=== PATIENT | male | born 1955 | race Caucasian/White ===

== ENCOUNTER 2018-01-07 17:00 | Outpatient (REF) | payer OTHER, BC, SELFPAY ==
[2018-01-07 21:34] LABS: Abs Immature Grans 0.01 k/cumm (0.0-0.09); Absolute Basophil Count 0.03 k/cumm (0.0-0.2); Absolute Eosinophil Count 0.24 k/cumm (0.0-0.7); Absolute Lymphocyte Count 1.39 k/cumm (1.2-3.4); Absolute Monocyte Count 0.58 k/cumm (0.11-0.7); Absolute Neutrophil Count 4.95 k/cumm (1.2-6.7); Basophils % 0.4; Eosinophils % 3.3; HCT 39.4 % (40.0-50.0); HGB 13.4 g/dL (13.5-17.5); Immature Grans % 0.1; Lymphocytes % 19.3; Mean Corpuscular Hemoglobin 31.6 pg (27.0-33.0); Mean Corpuscular Volume 92.9 fL (80-95); Mean Platelet Volume 12.1 fL (8.0-11.0); Monocytes % 8.1; Neutrophils % 68.8; Platelet Count 174 x1000/uL (130-400); RBC 4.24 m/cumm (4.50-6.00); RBC Distribution Width 13.5 % (11.8-14.1)
== END 2018-01-07 17:20 ==
LOC: NCHCN 17:00
PROVIDERS: PCP Physician Assistant Medical; Visit Provider Nurse Practitioner Family
DX: R91.8 Other nonspecific abnormal finding of lung field (principal); D64.9 Anemia, unspecified; I10 Essential (primary) hypertension; E11.9 Type 2 diabetes mellitus without complications
CPT/HCPCS: 85025

== ENCOUNTER 2018-01-14 00:52 | Outpatient (CLI) | payer OTHER, BC, SELFPAY ==
--- NOTE | 2018-01-14 14:29 | DI.CT_ITS ---
SYMPTOM/DIAGNOSIS: LUNG NODULE R91.8 CT CHEST: CT scan of the chest was performed without intravenous contrast material. Comparison examination is 07/27/17. Lack of IV contrast does limit evaluation on this examination. The thoracic aorta shows mild atherosclerosis. it is normal in caliber. Heart size is within normal limits. No significant pericardial effusion seen. No significant mediastinal adenopathy is seen on this noncontrast examination. No pleural effusion or pneumothorax is identified. There is pleural scarring present in the lung apices. The right upper lobe pulmonary nodule is again seen and measures 1 cm x 0.7 cm. This is unchanged compared to the prior examinations. No new pulmonary nodules are appreciated. No pulmonary infiltrates are seen. The tracheobronchial tree is unremarkable. Mild emphysematous changes are seen in the lungs. Upper abdominal images show no acute abnormality. Mild degenerative changes are seen in the spine. IMPRESSION: Stable right upper lobe pulmonary nodule
== END 2018-01-14 01:12 ==
PROVIDERS: PCP Physician Assistant Medical; Visit Provider Nurse Practitioner Family
DX: R91.8 Other nonspecific abnormal finding of lung field (principal)
CPT/HCPCS: 71250

== ENCOUNTER 2018-01-22 10:27 | Outpatient (REF) | payer OTHER, BC, SELFPAY ==
[2018-01-22 19:59] LABS: Folate 18.8 ng/mL (8.6-20.0)
== END 2018-01-22 10:47 ==
LOC: NCHCN 10:27
PROVIDERS: PCP Physician Assistant Medical; Visit Provider Nurse Practitioner Family
DX: D64.9 Anemia, unspecified (principal)
CPT/HCPCS: 82746

== ENCOUNTER 2018-07-04 16:54 | Outpatient (REF) | payer OTHER, BC, SELFPAY ==
[2018-07-04 20:52] LABS: Absolute Basophil Count 0.02 k/cumm (0.0-0.2); Absolute Eosinophil Count 0.26 k/cumm (0.0-0.7); Absolute Lymphocyte Count 1.47 k/cumm (1.2-3.4); Absolute Monocyte Count 0.38 k/cumm (0.11-0.7); Absolute Neutrophil Count 2.92 k/cumm (1.2-6.7); Basophils % 0.4; Eosinophils % 5.1; HCT 37.7 % (40.0-50.0); HGB 12.5 g/dL (13.5-17.5); Lymphocytes % 29.1; Mean Corp. HGB Concentration 33.2 g/dL (32.0-36.0); Mean Corpuscular Hemoglobin 30.7 pg (27.0-33.0); Mean Corpuscular Volume 92.6 fL (80-95); Mean Platelet Volume 12.2 fL (8.0-11.0); Monocytes % 7.5; Neutrophils % 57.9; Platelet Count 159 x1000/uL (130-400); RBC 4.07 m/cumm (4.50-6.00); RBC Distribution Width 14.3 % (11.8-14.1); White Blood Cell Count 5.05 k/cumm (4.4-10.8)
[2018-07-04 21:24] LABS: Anion Gap 11.2 mmol/L (3-11); BUN 24 mg/dL (7-18); CO2 23.8 mmol/L (21.0-32.0); CREATININE 0.83 mg/dL (0.70-1.30); Calcium 8.4 mg/dL (8.5-10.1); Chloride 101 mmol/L (98-107); Ferritin 25 ng/mL (8-388); Glucose 147 mg/dL (70-100); Potassium 4.4 mmol/L (3.5-5.1); Sodium 136 mmol/L (136-145)
== END 2018-07-04 17:14 ==
LOC: NCHCN 16:54
PROVIDERS: PCP Physician Assistant Medical; Visit Provider Nurse Practitioner Family
DX: D64.9 Anemia, unspecified (principal); I10 Essential (primary) hypertension
CPT/HCPCS: 80048; 82728; 85025

== ENCOUNTER 2018-07-15 00:53 | Outpatient (CLI) | payer OTHER, BC, SELFPAY ==
--- NOTE | 2018-07-15 08:23 | DI.CT_ITS ---
SYMPTOM/DIAGNOSIS: F/U LUNG NODULE, R91.[address]: CT examination of the chest was performed without contrast administration. The examination is compared with previous chest CT of 01/14/18 and 06/04/17. A previously described right upper lobe intrapulmonary nodule measuring about 10 by 7 mm. in diameter on transaxial images is again seen and is unchanged in appearance in comparison with the previous examinations. No new intrapulmonary nodule is seen. Tracheobronchial tree appears intact. No pleural effusion. Mild predominantly subpleural emphysematous changes noted in the lung apices. No mediastinal or hilar adenopathy. Images obtained through the upper abdomen show unremarkable appearance of visualized portions of the liver, spleen, pancreas, adrenals and kidneys. CONCLUSION: Stable right upper lobe pulmonary nodule. Follow up chest CT recommended in 12 months.
== END 2018-07-15 01:13 ==
PROVIDERS: PCP Physician Assistant Medical; Visit Provider Nurse Practitioner Family
DX: R91.8 Other nonspecific abnormal finding of lung field (principal)
CPT/HCPCS: 71250

== ENCOUNTER 2018-11-04 17:20 | Outpatient (REF) | payer OTHER, BC, SELFPAY ==
[2018-11-04 20:57] LABS: Abs Immature Grans 0.02 k/cumm (0.0-0.09); Absolute Basophil Count 0.05 k/cumm (0.0-0.2); Absolute Eosinophil Count 0.23 k/cumm (0.0-0.7); Absolute Lymphocyte Count 1.14 k/cumm (1.2-3.4); Absolute Monocyte Count 0.51 k/cumm (0.11-0.7); Absolute Neutrophil Count 4.25 k/cumm (1.2-6.7); Basophils % 0.8; Eosinophils % 3.7; Immature Grans % 0.3; Lymphocytes % 18.4; Mean Corp. HGB Concentration 34.2 g/dL (32.0-36.0); Mean Corpuscular Volume 93.6 fL (80-95); Mean Platelet Volume 11.8 fL (8.0-11.0); Monocytes % 8.2; Neutrophils % 68.6; Platelet Count 204 x1000/uL (130-400); RBC 4.06 m/cumm (4.50-6.00); RBC Distribution Width 13.5 % (11.8-14.1)
[2018-11-04 21:13] LABS: HDL Cholesterol 38 mg/dL (40-60); LDL CHOLESTEROL 91 mg/dL (<100)
== END 2018-11-04 17:40 ==
LOC: NCHCN 17:20
PROVIDERS: PCP Nurse Practitioner Family; Visit Provider Nurse Practitioner Family
DX: E10.9 Type 1 diabetes mellitus without complications (principal); D64.9 Anemia, unspecified
CPT/HCPCS: 83721; 83718; 85025

== ENCOUNTER 2019-06-23 20:22 | Outpatient (REF) | payer OTHER, BC, SELFPAY ==
[2019-06-23 20:35] LABS: HCT 39.5 % (40.0-50.0); HGB 13.5 g/dL (13.5-17.5); Mean Corp. HGB Concentration 34.2 g/dL (32.0-36.0); Mean Corpuscular Volume 93.6 fL (80-95); Mean Platelet Volume 12.4 fL (8.0-11.0); Platelet Count 182 x1000/uL (130-400); RBC 4.22 m/cumm (4.50-6.00); RBC Distribution Width 13.5 % (11.8-14.1); White Blood Cell Count 5.78 k/cumm (4.4-10.8)
[2019-06-23 20:49] LABS: Anion Gap 7.3 mmol/L (3-11); BUN 22 mg/dL (7-18); CO2 29.7 mmol/L (21.0-32.0); CREATININE 0.97 mg/dL (0.70-1.30); Calcium 8.9 mg/dL (8.5-10.1); Chloride 103 mmol/L (98-107); Glucose 70 mg/dL (74-106); HDL Cholesterol 43 mg/dL (40-60); Potassium 4.4 mmol/L (3.5-5.1); Sodium 140 mmol/L (136-145)
[2019-06-23 20:55] LABS: Hemoglobin A1C 7.9 % (3.8-5.6)
[2019-06-24 10:40] LABS: LDL CHOLESTEROL 92 mg/dL (<100)
== END 2019-06-23 20:42 ==
LOC: NCHCN 20:22
PROVIDERS: PCP Nurse Practitioner Family; Visit Provider Nurse Practitioner Family
DX: E10.9 Type 1 diabetes mellitus without complications (principal); I10 Essential (primary) hypertension
CPT/HCPCS: 80048; 83721; 85027; 83036; 83718

== ENCOUNTER 2019-08-25 18:26 | Outpatient (REF) | payer OTHER, BC, SELFPAY ==
[2019-08-31 12:23] LABS: SARS-CoV-2 RNA Undetected (Undetected); SARS-CoV-2 Specimen Source Nasopharynx
== END 2019-08-25 18:46 ==
LOC: NCHCN 18:26
PROVIDERS: PCP Nurse Practitioner Family; Visit Provider Nurse Practitioner Family
DX: Z20.828 Contact with and (suspected) exposure to other viral communicable diseases (principal)
CPT/HCPCS: U0003

== ENCOUNTER 2019-11-17 16:38 | Outpatient (REF) | payer OTHER, BC, SELFPAY ==
[2019-11-17 20:05] LABS: Abs Immature Grans 0.02 10^3/uL (0.0-0.06); Absolute Basophil Count 0.06 10^3/uL (0.0-0.2); Absolute Eosinophil Count 0.28 10^3/uL (0.0-0.7); Absolute Lymphocyte Count 1.53 10^3/uL (1.2-3.4); Absolute Monocyte Count 0.56 10^3/uL (0.1-0.8); Absolute Neutrophil Count 4.44 10^3/uL (1.2-6.7); Basophils % 0.9; Eosinophils % 4.1; HCT 40.8 % (40.0-50.0); HGB 13.9 g/dL (13.5-17.5); Immature Grans % 0.3; Lymphocytes % 22.2; MCH 31.4 pg (27.0-33.0); MCHC 34.1 % (32.0-36.0); MCV 92.3 fL (80-95); MPV 12.1 fL (8.0-11.0); Monocytes % 8.1; Neutrophils % 64.4; Nucleated RBC 0 %; Platelet Count 212 10^3/uL (130-400); RBC 4.42 10^6/uL (4.36-5.78); RDW 13.1 % (11.8-14.1); RDW-SD 44.6 fL; WBC 6.89 10^3/uL (4.4-10.8)
== END 2019-11-17 16:58 ==
LOC: NCHCN 16:38
PROVIDERS: PCP Nurse Practitioner Family; Visit Provider Nurse Practitioner Family
DX: D64.9 Anemia, unspecified (principal)
CPT/HCPCS: 85025

== ENCOUNTER 2020-09-01 10:25 | Outpatient (REF) | payer OTHER, BC, SELFPAY ==
[2020-09-01 15:16] LABS: Anion Gap 7.6 mmol/L (3-11); BUN 21 mg/dL (7-18); CO2 25.4 mmol/L (21.0-32.0); CREATININE 1.1 mg/dL (0.70-1.30); Calcium 8.1 mg/dL (8.5-10.1); Chloride 105 mmol/L (98-107); Glucose 240 mg/dL (74-106); Potassium 4.5 mmol/L (3.5-5.1); Sodium 138 mmol/L (136-145); Uric Acid 4.3 mg/dL (3.5-7.2)
[2020-09-01 15:44] LABS: Calculated LDL 90 mg/dL (<100); Cholesterol 138 mg/dL (<200); HDL Cholesterol 35 mg/dL (40-60); Triglyceride 67 mg/dL (<150)
== END 2020-09-01 10:26 | disposition home or self-care (01) ==
LOC: NCHCN 10:25
PROVIDERS: PCP Nurse Practitioner Family; Visit Provider Nurse Practitioner Family
DX: E10.9 Type 1 diabetes mellitus without complications (principal); I10 Essential (primary) hypertension; M25.40 Effusion, unspecified joint
CPT/HCPCS: 80048; 80061; 83036; 84550

== ENCOUNTER 2020-09-06 15:17 | Outpatient (REF) | payer OTHER, BC, SELFPAY ==
[2020-09-06 19:28] LABS: C-Reactive Protein 0.08 mg/dL (0.0-0.3)
[2020-09-06 19:31] LABS: Abs Immature Grans 0.02 10^3/uL (0.0-0.06); Absolute Basophil Count 0.05 10^3/uL (0.0-0.2); Absolute Eosinophil Count 0.16 10^3/uL (0.0-0.7); Absolute Monocyte Count 0.48 10^3/uL (0.1-0.8); Absolute Neutrophil Count 3.38 10^3/uL (1.2-6.7); Basophils % 0.9; Eosinophils % 2.8; HCT 38.5 % (40.0-50.0); HGB 12.9 g/dL (13.5-17.5); Immature Grans % 0.4; Lymphocytes % 28.1; MCH 30.6 pg (27.0-33.0); MCHC 33.5 % (32.0-36.0); MCV 91.2 fL (80-95); MPV 11.9 fL (8.0-11.0); Monocytes % 8.4; Neutrophils % 59.4; Nucleated RBC 0 %; Platelet Count 237 10^3/uL (130-400); RBC 4.22 10^6/uL (4.36-5.78); RDW 13.3 % (11.8-14.1); RDW-SD 44.7 fL; WBC 5.69 10^3/uL (4.4-10.8)
[2020-09-06 20:05] LABS: Vitamin D 25 Total 28.5 ng/mL (30-100)
== END 2020-09-06 15:18 | disposition home or self-care (01) ==
LOC: NCHCN 15:17
PROVIDERS: PCP Nurse Practitioner Family; Visit Provider Nurse Practitioner Family
DX: M25.40 Effusion, unspecified joint (principal); R53.83 Other fatigue; R79.9 Abnormal finding of blood chemistry, unspecified
CPT/HCPCS: 82306; 85025; 86140

== ENCOUNTER 2020-09-06 16:27 | Outpatient (CLI) | payer OTHER, BC, SELFPAY ==
--- NOTE | 2020-09-06 15:14 | DI.RAD_ITS ---
Exam(s) XR TOE RT SECOND EXAM: XR TOE RT SECOND CLINICAL HISTORY: SWOLLEN JOINTS M25.40, R/O OSTEOMYLITIS, T1DM, CELLULITIS, PERSISTANT SX. TECHNIQUE: 2D digital imaging was performed. COMPARISON: No exams were available for comparison FINDINGS: There is resorption of large part of the distal and middle phalanges the 2nd toe. First consideratio n is for osteomyelitis. No radiopaque foreign body. No obvious overlying skin ulcer. IMPRESSION: Prominent resorption of bone in the distal and middle phalanges of the 2nd toe. Proximal phalanx is preserved. First consideration is to rule out osteomyelitis. DATA REPOSITORY: RADIATION DOSE DELIVERED:
== END 2020-09-06 16:47 ==
PROVIDERS: PCP Nurse Practitioner Family; Visit Provider Nurse Practitioner Family
DX: M25.474 Effusion, right foot (principal)
CPT/HCPCS: 73660

== ENCOUNTER 2020-09-07 17:03 | Outpatient (REF) | payer OTHER, BC, SELFPAY | END 2020-09-07 17:04 | disposition home or self-care (01) | LOC: NCHCN 17:03 | PROVIDERS: PCP Nurse Practitioner Family; Visit Provider Podiatrist | DX: M86.9 Osteomyelitis, unspecified (principal) | CPT/HCPCS: 87070; 87205 ==

== ENCOUNTER 2020-09-10 06:14 | Day surgery (SDC) | payer OTHER, BC, SELFPAY ==
--- NOTE | 2020-09-09 11:53 | W.PM.HP.N ---
Date of service: 09/10/20 Time of Service: 11:53 History of Present Illness History of Present Illness Chief Complaint: Ulceration with osteomyelitis, right 2nd toe Narrative: 64 yo male with DM injured his right 2nd toe which has gotten infected with radiologis evidence of bone destruction of the middle and distal phalanges of the right 2nd toe. He is being brought to the OR for debridement/amputaation of the right 2nd toe. [facility] Medical History Diabetes mellitus Hyperlipidemia Hypertension Per patient he reports he take BP medication to protect his kidneys. 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 Surgical History History of colonoscopy Repair of inguinal hernia right when he was a child Family History (Updated 09/08/20 @ 15:09 by Leeanne Menjivar RN) Other Diabetes Social History Smoking/Tobacco Use Status: Current every day Tobacco Type: cigarettes Smoking risk assessment performed?: Yes Alcohol Intake: current Alcohol Intake frequency: a few times a week Drug use: Never Do you feel safe at home: Yes Do you feel safe in your relationship?: Yes Meds Allergies and Home Medications Allergies Allergy/AdvReac Type Severity Reaction Status Date / Time No Known Allergies Allergy Unverified 12/12/13 07:57 Home Medications Medication Instructions Recorded Confirmed Type aspirin [Aspir-81] 81 mg PO DAILY 10/10/13 09/08/20 History multivitamin [Daily Multi-Vitamin] 1 tab PO DAILY 10/10/13 09/08/20 History Lantus U-100 Insulin 32 units SQ HS 12/04/13 09/08/20 History lisinopril 2.5 mg PO HS 12/04/13 09/08/20 History albuterol sulfate [ProAir HFA] 2 puff INHALATION QID PRN 09/08/20 09/08/20 History cephalexin 500 mg PO TID 09/08/20 09/08/20 History ferrous sulfate 325 mg PO DAILY 09/08/20 09/08/20 History insulin lispro [Humalog KwikPen unit SUBCUT 09/08/20 History Insulin] polyethylene glycol 3350 [Miralax] 17 g PO DAILY 09/08/20 09/08/20 History Exam Narrative Exam Narrative: Heads normo cepahlic eyes PERRLA Hearing is adequate Uvula is midline, airway looks accessible Heart had RRR, no murmurs noted Lung soliman are clear Abdomen is soft, BS x 4 Peripheral pulses were palpable -2/4 bilaterally, no edema Muscle gps 5/5 bilaterally Skeletal exam reveals an edematous right 2nd toe which has an ulcer at the tip of the digit which tracks to bone, No cellulitis noted. Neurological exam, grossly intact Impressions: Osteomyelitis, right 2nd toe Plan: surgical debridement right 2nd toe (amputation of digit). Arabella understands potential risks and complications of surgery including the potential fot ongoing, pain, scarring, infection, failure to thrive with the need for additional surgery and loss of tissue. All questions have been answered, informed consent obtained.
[2020-09-10 06:29] VITALS: BP 124/63; PULSE 59; RESP 19; TEMP 36.8; O2SAT 97
[2020-09-10] MEDS: Lactated Ringers 1,000 ML 80 ML IV (07:02)
--- NOTE | 2020-09-10 07:04 | W.ANESPRE ---
General Info Date of Service Date Performed: 09/10/20 Height: 6 ft 6 in Weight: 84.4 kg Body Mass Index (BMI): 21.4 Surgical Procedure: Operation Date: 09/10/20 07:40 Proposed Procedures Side Surgeon p Toe Amputation,(R) 2 ND TOE Right Donnie Bernabe DPM Meds Allergies and Home Medications Allergies Allergy/AdvReac Type Severity Reaction Status Date / Time No Known Allergies Allergy Unverified 09/10/20 06:25 Home Medication Medication Instructions Recorded aspirin [Aspir-81] 81 mg PO DAILY 10/10/13 multivitamin [Daily Multi-Vitamin] 1 tab PO DAILY 10/10/13 Lantus U-100 Insulin 32 units SQ HS 12/04/13 lisinopril 2.5 mg PO HS 12/04/13 albuterol sulfate [ProAir HFA] 2 puff INHALATION QID PRN 09/08/20 cephalexin 500 mg PO TID 09/08/20 ferrous sulfate 325 mg PO DAILY 09/08/20 insulin lispro [Humalog KwikPen unit SUBCUT 09/08/20 Insulin] polyethylene glycol 3350 [Miralax] 17 g PO DAILY 09/08/20 Current Visit Medications: Current Medications Generic Name Dose Route Start Last Admin Trade Name Freq PRN Reason Stop Dose Admin Sodium Chloride 500 mls @ 0 mls/hr 09/10/20 06:00 Saline 500ml Bag IV PRN PRN As Directed Cefazolin Sodium/Dextrose 1 gm in 50 mls @ 100 mls/hr 09/10/20 06:00 Ancef Duplex IVPB PREOP SHAMIKA Ringer's Solution 1,000 mls @ 80 mls/hr 09/10/20 06:00 09/10/20 07:02 IV 10/09/20 23:59 80 mls/hr INFUSION SHAMIKA Administration IV Miscellaneous Supplies 1 each 09/10/20 06:00 Iv Access IV DIRECTED SHAMIKA IV Miscellaneous Supplies 1 each 09/10/20 06:00 Iv Access IV 10/09/20 23:59 DIRECTED SHAMIKA Povidone Iodine 0 ml 09/10/20 06:00 Povidone-Iodine Soln. 118 Ml Btl TP DIRECTED SHAMIKA Sodium Chloride 0 ml 09/10/20 06:00 Normal Saline Flush 10 Ml Syr IVP PRN PRN Sodium Chloride 0 ml 09/10/20 06:00 Normal Saline Flush 10 Ml Syr IV 10/09/20 23:59 PRN PRN Sodium Chloride 0 ml 09/10/20 06:00 Normal Saline 10 Ml Vial IJ 10/09/20 23:59 DIRECTED PRN Sterile Water 0 ml 09/10/20 06:00 Water,Injection,Sterile 10 Ml Vial IJ 10/09/20 23:59 DIRECTED PRN PFSH Active Problems Active Problems: Problem Status Onset Code Acute diffuse otitis externa of right ear H60.311 Abnormal auditory perception H93.299 Medical History Medical History Diabetes mellitus Hyperlipidemia Hypertension Per patient he reports he take BP medication to protect his kidneys. 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 Surgical History Surgical History History of colonoscopy Repair of inguinal hernia right when he was a child Tobacco Smoking/Tobacco Use Status: Current every day Tobacco Type: cigarettes Alcohol Alcohol Intake: current Alcohol intake frequency: a few times a week Substance Use Substance use: Never Vital Signs and Lab Results Vital Signs Most Recent Vital Signs in EMR: Most Recent Vital Signs Temp Pulse Resp BP Pulse Ox 36.8 C 59 L 19 124/63 97 09/10/20 06:29 09/10/20 06:29 09/10/20 06:29 09/10/20 06:29 09/10/20 06:29 Point of Care Results Point of Care Results: Finger Stick Blood Glucose 192 09/10/20 06:55 Lab Results Blood Type / Crossmatch: No Data to Display Complete Blood Count: White Blood Count 5.69 10^3/uL (4.4-10.8) 09/06/20 14:55 09/06/20 Red Blood Count 4.22 10^6/uL (4.36-5.78) L 09/06/20 14:55 09/06/20 Hemoglobin 12.9 g/dL (13.5-17.5) L 09/06/20 14:55 09/06/20 Hematocrit 38.5 % (40.0-50.0) L 09/06/20 14:55 09/06/20 Platelet Count 237 10^3/uL (130-400) 09/06/20 14:55 09/06/20 Complete Metabolic Panel: Sodium Level 138 mmol/L (136-145) 09/01/20 07:35 09/01/20 Potassium Level 4.5 mmol/L (3.5-5.1) 09/01/20 07:35 09/01/20 Chloride Level 105 mmol/L (98-107) 09/01/20 07:35 09/01/20 Carbon Dioxide Level 25.4 mmol/L (21.0-32.0) 09/01/20 07:35 09/01/20 Blood Urea Nitrogen 21 mg/dL (7-18) H 09/01/20 07:35 09/01/20 Creatinine 1.1 mg/dL (0.70-1.30) 09/01/20 07:35 09/01/20 Estimated GFR/1.73 m2 >= 60.00 (mL/min/1.73m2) 09/01/20 07:35 09/01/20 Calcium Level 8.1 mg/dL (8.5-10.1) L 09/01/20 07:35 09/01/20 Glucose Level 240 mg/dL (74-106) H 09/01/20 07:35 09/01/20 Hemoglobin A1c 8.0 % (<5.7) H 09/01/20 07:35 09/01/20 C-Reactive Protein 0.08 mg/dL (0.0-0.3) 09/06/20 14:55 09/06/20 Liver Function Panel: No Data to Display Coagulation Panel: No Data to Display Cardiac Panel: No Data to Display Arterial Blood Gas: No Data to Display Venous Blood Gas: No Data to Display Pancreas Panel: No Data to Display Thyroid Panel: No Data to Display Infectious Disease: No Data to Display Blood Cultures: No Data to Display Toxicology Panel: No Data to Display Anesthesia Assessment and Plan Anesthesia History Personal History: No History of Anesthesia Complications Family History: No Family History of Anesthesia Complications Exercise Tolerance Exercise Tolerance: Metabolic Equivalents>4 Pertinent Negatives Pertinent Negatives: No Symptoms of GERD, No Major Cardiovascular Symptoms or Complaints, No History of CVA/TIA and Other (Smoker half PPD) Cardiac & Pulmonary Exam Cardiac Exam: Normal S1/S2 Heart Sounds Pulmonary Exam: Clear Bilateral Breath Sounds Airway Exam Known Difficult Airway: No Mallampati Class: 1 Mouth Opening: Normal (> 3cm) Thyromental Distance: Greater than 3 cm Neck Range of Motion: Full ROM Neck Circumference: Normal Teeth Condition: Normal Dentition and Other (Multiple missing teeth) ASA Classification ASA Score: ASA 3 Emergency Case?: No NPO Status NPO Status: NPO Clears >2 hours, Solids >8 hours Anesthesia Plan Resuscitation Status: Full Code Anesthesia Technique: MAC Anesthesia Airway Planned: Natural Airway Monitors Used: Standard Monitors
[2020-09-10 07:10] VITALS: BMI 21.4
[2020-09-10] MEDS: ceFAZolin 1 GM/50 ML BAG IVPB (07:27)
--- NOTE | 2020-09-10 07:41 | AMP_PTH ---
PATIENT: Arabella Noel LOC: [facility] U#:[id number] AGE/SX: 64/M ROOM: RE09/10/[address]: Donnie Bernabe : 1955 BED: DIS: 09/10/2020 SPEC #: [id number] RECD: 09/10/20 12:16 STATUS: EFRA RESanty #: [id number] ALMA DELIA: 09/10/20 07:[address]: Donnie Bernabe DEPT: Surgical Specimen RECD BY: Raysa Aguayo ENTERED: 09/10/20 12:18 SP TYPE: Amputation OTHR DR: Niya Gracia Tissues: 1 - AMPUTATION FINGERS/TOES(NOT TRAUMA) Procedures: GROSS AND MICRO LEVEL 4 DECALCIFICATION Comments: [id number]
[2020-09-10] MEDS: Bupivacaine 0.5% Pres-Free 30 ML VIAL (07:58)
[2020-09-10] MEDS: Lidocaine 1% Multi-Dose 50 ML VIAL (07:59)
--- NOTE | 2020-09-10 08:04 | W.PM.DSUDISC ---
Discharge Plan Disposition Patient Disposition: HOME Condition: Good Discharge Details Reason For Visit: DM ULCER (R) 2ND TOE Attending Provider: Donnie Bernabe Primary Care Provider: Niya Gracia Home Meds and New Rx's Prescriptions: Continued Lantus U-100 Insulin 100 UNIT/1 ML solution 32 units SQ HS RF: 0 lisinopril 2.5 MG tablet 2.5 mg PO HS RF: 0 multivitamin [Daily Multi-Vitamin] 1 EACH tablet 1 tab PO DAILY RF: 0 aspirin [Aspir-81] 81 MG tablet,delayed release (DR/EC) 81 mg PO DAILY RF: 0 polyethylene glycol 3350 [Miralax] 17 gram Powder In Packet 17 g PO DAILY RF: 0 ferrous sulfate 325 mg (65 mg iron) Tablet 325 mg PO DAILY RF: 0 albuterol sulfate [ProAir HFA] 90 mcg/actuation Hfa Aerosol Inhaler 2 puff INHALATION QID PRNRF: 0 insulin lispro [Humalog KwikPen Insulin] 100 unit/mL Insulin Pen SUBCUT RF: 0 cephalexin 500 mg Capsule 500 mg PO TID RF: 0 Discharge Instructions Activity:: Elevate Remove Dressings/Wound Care:: Do Not Remove Shower/Bathe:: Cover Diet:: Carb Counting Discharge Orders Discharge Orders: Discharge Order (Routine); Ordered 09/10/20 Ordered By: Donnie Bernabe DS: Diagnosis Discharge Diagnosis (1) Osteomyelitis of ankle or foot, right, acute: Status: Acute (2) Diabetic ulcer of toe of right foot associated with diabetes mellitus due to underlying condition, with necrosis of bone: Status: Acute
[2020-09-10 08:05] VITALS: BP 119/57; PULSE 51; RESP 16; TEMP 35.9; O2SAT 98
--- NOTE | 2020-09-10 08:09 | W.PM.OP ---
Date of service: 09/10/20 Time of Service: 08:09 Operative Note Operative Note DATE OF PROCEDURE: 09/10/20 PRE-OP DIAGNOSIS: Diabetic ulcer right second toe with osteomyelitis POST-OP DIAGNOSIS: same PROCEDURE: Amputation right second toe through the proximal phalanx with primary closure SURGEON: Donnie Bernabe ANESTHESIA TYPE: General:No Airway Refer to Anesthesia Record ESTIMATED BLOOD LOSS: 1 PATHOLOGY: other TOURNIQUET TIME: 18 COMPLICATIONS: None Patient was transported to: same day Patient's condition: stable Indications: 64-year-old male who sustained an ulceration at the distal tip of the right second toe with subsequent osteomyelitis of the middle and distal phalanges. He is being brought to the OR for surgical debridement?amputation of the second toe. He understands the permanency of the procedure. He understands the potential for wound dehiscence due to infection, pain, scarring, the potential for more proximal amputation if he fails to thrive. Informed consent been obtained no promises made to final outcome of surgery. Procedure Description: Patient was brought to the operative suite placed in the supine position with the right foot prepped and draped in usual sterile podiatric fashion. Timeout was performed for safe surgery. Anesthesia was obtained with supplementation of a digital block consisting of 10 cc 50: 50 mixture 1% lidocaine plain, 0.5% Marcaine plain. Attention was directed to the right foot which was exsanguinated well-padded ankle tourniquet inflated 250 mmHg. Attention was directed to the right second toe with dorsal and plantar incisions were made so as to afford a amputation through the proximal interphalangeal joint. Dorsal flap was raised the joint capsule was incised and released the plantar incision was then made flapped plantarly the flexor tendon and joint capsule was released and the distal portion of the second toe removed from the operative field. No purulence was identified at this area the tissue was a little grayish in appearance. The head of the proximal phalanx was a little grayish in appearance which I attributed more to his tobacco abuse and diabetes. With double-action bone cutting forceps I resected the head of the proximal phalanx at its surgical neck all rough and bony edges were rasped smooth. At this level the bone appeared healthier once again no active signs of infection. The wound was copiously irrigated the extensor and flexor tendons were repaired and and over the exposed bone with 3-0 Vicryl skin was then closed in the near far far near suture of 3-0 nylon with 4-0 nylon simple interrupted suture interspersed between them. Xeroform gauze fluff compression dressings were applied and the tourniquet was released at 18 minutes. Rock left the OR vital signs stable vascular status intact will be followed by myself in the office. Sharp and sponge counts were correct. Follow-up next week at the office
--- NOTE | 2020-09-10 08:10 | W.ANESPOSTOP ---
Postoperative Evaluation Vital Signs Most Recent Imported Vital Signs: Most Recent Vital Signs Temp Pulse Resp BP Pulse Ox 36.8 C 59 L 19 124/63 97 09/10/20 06:29 09/10/20 06:29 09/10/20 06:29 09/10/20 06:29 09/10/20 06:29 Pain Score Most Recent Pain Score: Most Recent Pain Score Pain Level 0 09/10/20 06:29
--- NOTE | 2020-09-10 08:25 | W.ANESPOSTOP ---
Postoperative Evaluation Date, Time and Location Date Performed: 09/10/20 Time Performed: 08:26 Patient Location: Day Surgery Unit Vital Signs Most Recent Imported Vital Signs: Most Recent Vital Signs Temp Pulse Resp BP Pulse Ox 35.9 C L 51 L 16 119/57 L 98 09/10/20 08:05 09/10/20 08:05 09/10/20 08:05 09/10/20 08:05 09/10/20 08:05 Pain Score Most Recent Pain Score: Most Recent Pain Score Pain Level 0 09/10/20 08:05 Assessment Mental Status: Awake (Alert & Oriented to Patient Baseline) Airway and Respiratory Function: Patent airway with normal (patient baseline) respiratory exam Cardiovascular Function: Hemodynamically Stable Hydration Status: Adequately Hydrated Nausea & Vomiting: No Nausea or Vomiting Pain: Pt. Denies Any Pain Peripheral Nerve Block: Patient did not receive a nerve block
[2020-09-10 08:43] VITALS: BP 123/56; PULSE 48; RESP 15; TEMP 36.3; O2SAT 97
== END 2020-09-10 09:10 | disposition home or self-care (01) ==
PROVIDERS: PCP Nurse Practitioner Family; Visit Provider Podiatrist
PROC: (CPT 28825; principal; 2020-09-10 07:30)
DX: E11.621 Type 2 diabetes mellitus with foot ulcer (principal); M86.171 Other acute osteomyelitis, right ankle and foot; L97.514 Non-pressure chronic ulcer of other part of right foot with necrosis of bone; L03.031 Cellulitis of right toe
CPT/HCPCS: 28825; 88305; 88311; 99211; J0690; J1885; J2001; J2405

== ENCOUNTER 2021-01-10 20:53 | Outpatient (REF) | payer OTHER, BC, SELFPAY ==
[2021-01-10 20:28] LABS: HCT 39.9 % (40.0-50.0); HGB 13.4 g/dL (13.5-17.5); MCH 30.9 pg (27.0-33.0); MCHC 33.6 % (32.0-36.0); MCV 91.9 fL (80-95); MPV 12.4 fL (8.0-11.0); Platelet Count 173 10^3/uL (130-400); RBC 4.34 10^6/uL (4.36-5.78); RDW 13.2 % (11.8-14.1); WBC 6.43 10^3/uL (4.4-10.8)
[2021-01-10 20:42] LABS: Hemoglobin A1C 8.1 % (<5.7)
[2021-01-10 20:47] LABS: Ferritin 36 ng/mL (26-388); Iron 100 ug/dL (65-175); Total Iron Binding Capacity 339 ug/dL (250-450); Transferrin Sat 29 % (20-55)
== END 2021-01-10 20:54 | disposition home or self-care (01) ==
LOC: NCHCN 20:53
PROVIDERS: PCP Nurse Practitioner Family; Visit Provider Nurse Practitioner Family
DX: E10.9 Type 1 diabetes mellitus without complications (principal); D64.9 Anemia, unspecified
CPT/HCPCS: 85027; 82728; 83036; 83540; 83550; 84443

== ENCOUNTER 2021-04-11 16:03 | Outpatient (REF) | payer OTHER, SELFPAY ==
[2021-04-11 20:22] LABS: Hemoglobin A1C 8.5 % (<5.7)
== END 2021-04-11 16:04 | disposition home or self-care (01) ==
LOC: NCHCN 16:03
PROVIDERS: PCP Nurse Practitioner Family; Visit Provider Nurse Practitioner Family
DX: E10.9 Type 1 diabetes mellitus without complications (principal)
CPT/HCPCS: 83036

== ENCOUNTER 2021-07-12 14:52 | Outpatient (REF) | payer OTHER, MEDICARE, SELFPAY ==
[2021-07-12 15:06] LABS: HCT 40.5 % (40.0-50.0); HGB 13.5 g/dL (13.5-17.5); MCHC 33.3 % (32.0-36.0); MCV 93 fL (80-95); MPV 11.8 fL (8.0-11.0); Platelet Count 168 10^3/uL (130-400); RBC 4.35 10^6/uL (4.36-5.78); RDW 13.1 % (11.8-14.1)
[2021-07-12 16:05] LABS: ALT 30 U/L (16-63); AST 15 U/L (15-37); Albumin 3.9 g/dL (3.4-5.0); Alkaline Phosphatase 141 U/L (46-116); Anion Gap 8.3 mmol/L (3-11); Bilirubin, Total 0.6 mg/dL (0.2-1.0); CO2 24.7 mmol/L (21.0-32.0); Calcium 8.3 mg/dL (8.5-10.1); Chloride 105 mmol/L (98-107); Cholesterol 154 mg/dL (<200); Creatine Kinase 192 U/L (39-308); Glucose 257 mg/dL (74-106); Potassium 4.9 mmol/L (3.5-5.1); Sodium 138 mmol/L (136-145); Total Protein 6.7 g/dL (6.4-8.2)
[2021-07-12 16:22] LABS: BUN 20 mg/dL (7-18); Calculated LDL 101 mg/dL (<100); HDL Cholesterol 44 mg/dL (40-60); Triglyceride 47 mg/dL (<150)
[2021-07-13 17:17] LABS: Hemoglobin A1C 8.3 % (<5.7)
[2021-07-14 06:49] LABS: Vitamin D 25 Total 21.4 ng/mL (30-100)
== END 2021-07-12 14:53 | disposition home or self-care (01) ==
LOC: NCHCN 14:52
PROVIDERS: PCP Nurse Practitioner Family; Visit Provider Nurse Practitioner Family
DX: E10.9 Type 1 diabetes mellitus without complications (principal); I10 Essential (primary) hypertension; D64.9 Anemia, unspecified; R89.8 Other abnormal findings in specimens from other organs, systems and tissues
CPT/HCPCS: 80053; 80061; 82306; 82550; 85027; 83036

== ENCOUNTER 2022-07-12 10:02 | Outpatient (REF) | payer MEDICARE, BC, SELFPAY ==
[2022-07-12 16:24] LABS: Hemoglobin A1C 7.1 % (<5.7)
[2022-07-12 16:40] LABS: ALT 30 U/L (16-63); AST 19 U/L (15-37); Alkaline Phosphatase 117 U/L (46-116); Anion Gap 6.9 mmol/L (3-11); BUN 18 mg/dL (7-18); Bilirubin, Total 0.6 mg/dL (0.2-1.0); CO2 27.1 mmol/L (21.0-32.0); Calcium 8.6 mg/dL (8.5-10.1); Chloride 107 mmol/L (98-107); Estimated GFR 82.49 (mL/min/1.73m2); Glucose 147 mg/dL (74-106); HDL Cholesterol 41 mg/dL (40-60); LDL CHOLESTEROL 102 mg/dL (<100); Potassium 4.4 mmol/L (3.5-5.1); Sodium 141 mmol/L (136-145); Total Protein 7.3 g/dL (6.4-8.2)
== END 2022-07-12 10:03 | disposition home or self-care (01) ==
LOC: NCHCN 10:02
PROVIDERS: PCP Nurse Practitioner Family; Visit Provider Nurse Practitioner Family
DX: I10 Essential (primary) hypertension (principal); E08.33 Diabetes mellitus due to underlying condition with moderate nonproliferative diabetic retinopathy
CPT/HCPCS: 80053; 83721; 83036; 83718

== ENCOUNTER → 2022-12-07 03:04 | Outpatient (CLI) | payer MEDICARE, BC, SELFPAY ==
--- NOTE | 2022-12-07 09:41 | DI.RAD_ITS ---
Exam(s) XR FOOT RT COMPLETE EXAM: XR FOOT RT COMPLETE CLINICAL HISTORY: Pain in right foot,M79.671. TECHNIQUE: 2D digital imaging was performed. Three views. COMPARISON: CR XR TOE RT SECOND from 09/06/2020 CR XR FOOT LT COMPLETE from 12/07/2022 FINDINGS: BONES: Prior amputation the distal and middle phalanges and distal portion of the proximal phalanx of the 2nd toe. Phalanges of the 3rd through 5th metatarsals suboptimally 5 profiled due to hammertoe deformities. No acute fracture is present. No bony destructive lesion is seen. JOINTS: No dislocation present. Degenerative changes interphalangeal joint of the great toe also wit h flexion deformity. SOFT TISSUE: Normal. IMPRESSION: Status post amputation of portion of the 2nd toe. No bony erosions. Retro deformities. DATA REPOSITORY: RADIATION DOSE DELIVERED:
--- NOTE | 2022-12-07 09:42 | DI.RAD_ITS ---
Exam(s) XR FOOT LT COMPLETE EXAM: XR FOOT LT COMPLETE CLINICAL HISTORY: Pain in left foot,M79.672. TECHNIQUE: 2D digital imaging was performed. Three views. COMPARISON: CR XR TOE RT SECOND from 09/06/2020 FINDINGS: BONES: No acute fracture is present. No bony destructive lesion is seen. JOINTS: No dislocation present. Minimal degenerative changes. Hammertoe deformities. SOFT TISSUE: Calcification in distal Achilles tendon and plantar fascia. IMPRESSION: Unremarkable radiographs of the left foot. DATA REPOSITORY: RADIATION DOSE DELIVERED:
== END ==
PROVIDERS: PCP Nurse Practitioner Family; Visit Provider Podiatrist
DX: M79.671 Pain in right foot (principal); M79.672 Pain in left foot; Z98.890 Other specified postprocedural states
CPT/HCPCS: 73630

== ENCOUNTER → 2023-02-19 09:16 | Outpatient (BNVA) | payer MEDICARE, BC, SELFPAY | PROVIDERS: PCP Nurse Practitioner Family; Referring Provider Podiatrist; Visit Provider Physical Therapy Assistant | DX: I73.9 Peripheral vascular disease, unspecified (principal) | CPT/HCPCS: 93922 ==

== ENCOUNTER 2023-06-20 18:16 | Outpatient (REF) | payer MEDICARE, BC, SELFPAY ==
[2023-06-20 15:53] LABS: Hemoglobin A1C 7.8 % (<5.7)
== END 2023-06-20 18:17 | disposition home or self-care (01) ==
LOC: NCHCN 18:16
PROVIDERS: PCP Nurse Practitioner Family; Visit Provider Nurse Practitioner Family
DX: E10.9 Type 1 diabetes mellitus without complications (principal)
CPT/HCPCS: 83036

== ENCOUNTER → 2023-06-25 10:40 | Outpatient (BNVA) | payer MEDICARE, BC, SELFPAY | PROVIDERS: PCP Nurse Practitioner Family; Referring Provider Nurse Practitioner Family; Visit Provider Podiatrist | DX: M79.672 Pain in left foot; M79.671 Pain in right foot; S98.131D Complete traumatic amputation of one right lesser toe, subsequent encounter; I73.9 Peripheral vascular disease, unspecified; B35.1 Tinea unguium; L60.3 Nail dystrophy; L84 Corns and callosities; R20.2 Paresthesia of skin; E11.42 Type 2 diabetes mellitus with diabetic polyneuropathy; X58.XXXD Exposure to other specified factors, subsequent encounter | CPT/HCPCS: 11055; 11721 ==

== ENCOUNTER → 2023-11-05 09:13 | Outpatient (BNVA) | payer MEDICARE, BC, SELFPAY | PROVIDERS: PCP Nurse Practitioner Family; Referring Provider Nurse Practitioner Family; Visit Provider Podiatrist | DX: E11.42 Type 2 diabetes mellitus with diabetic polyneuropathy (principal); E34.9 Endocrine disorder, unspecified; M79.671 Pain in right foot; M79.672 Pain in left foot; I73.89 Other specified peripheral vascular diseases; B35.1 Tinea unguium; L60.3 Nail dystrophy; L84 Corns and callosities | CPT/HCPCS: 11721; 17110 ==

== ENCOUNTER → 2023-12-06 08:32 | Outpatient (BNVA) | payer MEDICARE, BC, SELFPAY | PROVIDERS: PCP Nurse Practitioner Family; Referring Provider Nurse Practitioner Family; Visit Provider Podiatrist | DX: E11.42 Type 2 diabetes mellitus with diabetic polyneuropathy (principal); L84 Corns and callosities; I73.89 Other specified peripheral vascular diseases; E34.9 Endocrine disorder, unspecified; E11.8 Type 2 diabetes mellitus with unspecified complications; M79.671 Pain in right foot; M79.672 Pain in left foot; B35.1 Tinea unguium; L60.3 Nail dystrophy; Z89.421 Acquired absence of other right toe(s) | CPT/HCPCS: 17110 ==

== ENCOUNTER → 2024-02-20 08:27 | Outpatient (BNVA) | payer MEDICARE, BC, SELFPAY | PROVIDERS: PCP Nurse Practitioner Family; Referring Provider Nurse Practitioner Family; Visit Provider Podiatrist | DX: L60.3 Nail dystrophy (principal); B35.1 Tinea unguium; E11.42 Type 2 diabetes mellitus with diabetic polyneuropathy; L84 Corns and callosities; R20.2 Paresthesia of skin; I73.9 Peripheral vascular disease, unspecified; M67.01 Short Achilles tendon (acquired), right ankle; M67.02 Short Achilles tendon (acquired), left ankle; Z89.421 Acquired absence of other right toe(s) | CPT/HCPCS: 11719; 11720 ==

== ENCOUNTER 2024-03-03 13:53 | Outpatient (REF) | payer MEDICARE, BC, SELFPAY ==
[2024-03-03 16:30] LABS: Hemoglobin A1C 7.4 % (<5.7)
[2024-03-03 16:35] LABS: ALT 40 U/L (16-63); AST 18 U/L (15-37); Alkaline Phosphatase 138 U/L (46-116); Anion Gap 7.4 mmol/L (3-11); BUN 18 mg/dL (7-18); CO2 28.6 mmol/L (21.0-32.0); Calcium 8.9 mg/dL (8.5-10.1); Chloride 106 mmol/L (98-107); Estimated GFR 81.47 (mL/min/1.73m2); Glucose 178 mg/dL (74-106); Potassium 4.7 mmol/L (3.5-5.1); Sodium 142 mmol/L (136-145); Total Protein 6.9 g/dL (6.4-8.2)
[2024-03-03 16:54] LABS: COMMENT (LAB VIEW ONLY) 175.75 mg/dL; Microalb ug/mg Crea 128.1 ug/mg Cr
[2024-03-03 17:41] LABS: Vitamin D 25 Total 27.4 ng/mL (30-100)
== END 2024-03-03 13:54 | disposition home or self-care (01) ==
LOC: NCHCN 13:53
PROVIDERS: PCP Nurse Practitioner Family; Visit Provider Nurse Practitioner Family
DX: Z79.4 Long term (current) use of insulin (principal)
CPT/HCPCS: 80053; 82306; 82043; 82570; 83036

== ENCOUNTER 2024-03-06 02:54 | Outpatient (CLI) | payer MEDICARE, BC, SELFPAY ==
--- NOTE | 2024-03-06 | DI.US_ITS ---
Exam(s) US AAA SCREENING EXAM: US AAA SCREENING CLINICAL HISTORY: TOBACCO USER, Z72.0, SCREENING FOR AAA COMPARISON: US ABDOMEN ULTRASOUND from 04/02/2009 FINDINGS: There is no evidence of significant abdominal aortic aneurysm. Maximum diameter the abdominal aorta is 2.6 cm proximally. Distal abdominal aorta tapers normally. Visualized common iliac arteries are normal diameter. IMPRESSION: No evidence of abdominal aortic aneurysm. DATA REPOSITORY:
== END 2024-03-06 03:14 ==
LOC: DI 02:54
PROVIDERS: PCP Nurse Practitioner Family; Visit Provider Nurse Practitioner Family
DX: Z13.6 Encounter for screening for cardiovascular disorders (principal); Z72.0 Tobacco use
CPT/HCPCS: 76706

== ENCOUNTER 2024-05-19 10:37 | Outpatient (REF) | payer MEDICARE, BC, SELFPAY ==
[2024-05-19 16:22] LABS: Calculated LDL 69 mg/dL (<100); Cholesterol 116 mg/dL (<200); HDL Cholesterol 32 mg/dL (>or=40); Triglyceride 76 mg/dL (<150)
== END 2024-05-19 10:38 | disposition home or self-care (01) ==
LOC: NCHCN 10:37
PROVIDERS: PCP Nurse Practitioner Family; Visit Provider Nurse Practitioner Family
DX: Z79.4 Long term (current) use of insulin (principal)
CPT/HCPCS: 80061

== ENCOUNTER 2024-05-27 13:22 | Outpatient (REF) | payer MEDICARE, BC, SELFPAY ==
[2024-05-27 15:44] LABS: COMMENT (LAB VIEW ONLY) 104.08 mg/dL; Microalb ug/mg Crea 44.2 ug/mg Cr
== END 2024-05-27 13:23 | disposition home or self-care (01) ==
LOC: NCHCN 13:22
PROVIDERS: PCP Nurse Practitioner Family; Visit Provider Nurse Practitioner Family
DX: Z79.4 Long term (current) use of insulin (principal)
CPT/HCPCS: 82043; 82570

== ENCOUNTER → 2024-06-18 09:01 | Outpatient (BNVA) | payer MEDICARE, BC, SELFPAY | PROVIDERS: PCP Nurse Practitioner Family; Referring Provider Nurse Practitioner Family; Visit Provider Podiatrist | DX: L97.521 Non-pressure chronic ulcer of other part of left foot limited to breakdown of skin; E10.621 Type 1 diabetes mellitus with foot ulcer; L60.3 Nail dystrophy; I73.89 Other specified peripheral vascular diseases; E34.9 Endocrine disorder, unspecified; G63 Polyneuropathy in diseases classified elsewhere; B35.1 Tinea unguium; E10.40 Type 1 diabetes mellitus with diabetic neuropathy, unspecified; Z89.421 Acquired absence of other right toe(s); R09.89 Other specified symptoms and signs involving the circulatory and respiratory systems; I83.93 Asymptomatic varicose veins of bilateral lower extremities; L65.9 Nonscarring hair loss, unspecified; R23.8 Other skin changes; L60.2 Onychogryphosis; L60.8 Other nail disorders; L85.8 Other specified epidermal thickening | CPT/HCPCS: 11042; 11056; 11721 ==

== ENCOUNTER 2024-08-25 19:33 | Outpatient (REF) | payer MEDICARE, BC, SELFPAY ==
[2024-08-25 19:03] LABS: COMMENT (LAB VIEW ONLY) 44.51 mg/dL; Microalb ug/mg Crea 98.9 ug/mg Cr
== END 2024-08-25 19:34 | disposition home or self-care (01) ==
LOC: NCHCN 19:33
PROVIDERS: PCP Nurse Practitioner Family; Visit Provider Nurse Practitioner Family
DX: R80.9 Proteinuria, unspecified (principal)
CPT/HCPCS: 82043; 82570